=== PATIENT | male | born 1975 | race Caucasian/White ===

== ENCOUNTER 2020-09-11 01:36 | Emergency (ER) | payer OTHER ==
[~2020-09-11] VITALS: Ht 193 cm; Wt 143.0 kg
[2020-09-11 02:54] VITALS: BP 146/91
== END 2020-09-11 03:58 | disposition left against medical advice (07) ==
LOC: ER 01:36
DX: R42 Dizziness and giddiness (principal); R47.81 Slurred speech; Z53.21 Procedure and treatment not carried out due to patient leaving prior to being seen by health care provider